=== PATIENT | female | born 1950 | race Caucasian/White ===

== ENCOUNTER → 2016-09-06 | Outpatient (CLI) | payer MEDICARE, OTHER ==
--- NOTE | 2016-09-06 16:16 | KCIC ---
Examination: 3 views of the cervical spine HISTORY: History of neck pain for 6 months COMPARISON: None available FINDINGS: The vertebral body heights are maintained. There is severe intervertebral disc height loss identified at C4-C5, C5-C6 vertebral levels. Small anterior superior formation identified at C4, C5, C6 vertebral levels. There is straightening of normal cervical lordosis. The facets are well aligned. The spinolaminar line is maintained. The lateral masses of C1 are aligned with C2 vertebra. The evaluation of the C2 dens is limited due to positioning. IMPRESSION: 1. Severe degenerative changes cervical spine at C4-C5, C5-C6 vertebral levels. 2. The C2 dens is not clearly identified on the open-mouth view. Electronically signed by: Jude Lo MD (09/06/2016 4:13 PM) [email or web address]
--- NOTE | 2016-09-06 16:25 | KCIC ---
Examination: 5 views of the lumbar spine and 2 views of the left hip HISTORY: History of left hip pain, low back pain for 6 months COMPARISON: None available. FINDINGS: The lumbar vertebral body heights are maintained. There is 5 mm anterolisthesis of L4 on L5. Moderate intervertebral disc height loss identified at L4-L5, L5-S1 vertebral levels. Moderate facet hypertrophic changes identified in the lumbar spine. Aortic atherosclerosis. Moderate joint space loss identified in the left hip joint. There is no acute fracture or dislocation identified. IMPRESSION: 1. Moderate degenerative changes lumbar spine. Mild 5 mm anterolisthesis of L4 on L5. 2. Moderate degenerative changes left hip joint. Electronically signed by: Jude Lo MD (09/06/2016 4:23 PM) [email or web address]
== END | disposition home or self-care (01) ==
LOC: KCIC 14:27
PROVIDERS: ATTEND Physician Assistant Medical
DX: M47.896 Other spondylosis, lumbar region (principal); M43.16 Spondylolisthesis, lumbar region; M16.12 Unilateral primary osteoarthritis, left hip; I70.0 Atherosclerosis of aorta
CPT/HCPCS: 72040; 72110; 73502